=== PATIENT | male | born 1940 | race Caucasian/White ===

== ENCOUNTER 2016-06-29 07:30 | Emergency (ER) | payer MEDICARE ==
[2016-06-29 08:33] LABS: ABSOLUTE NEUTROPHIL COUNT 3.8 K/mm3 (1.8-7.7); BASO % 0.5 % (0.2-1.0); EOS # 0.2 (0.0-0.5); EOS % 3.4 % (0.9-2.9); HEMATOCRIT 44.7 % (32.0-52.0); IMM NEUT% 0.6 % (0-1); LYMPH # 1.6 (1.0-4.8); LYMPH % 24.5 % (15-45); MEAN CELL VOLUME 86.5 fl (80.0-94.0); MEAN CORPUSCULAR HGB CONC 33.6 g/dl (33.0-37.0); MEAN PLATELET VOLUME 10.7 fl (7.4-10.4); MONO # 0.7 (0.0-0.8); MONO % 11.3 % (4-12); NEUT % 59.7 % (43-75); PLATELET COUNT 206 K/mm3 (130-400)
[2016-06-29 08:44] LABS: ALB/GLOB RATIO 1.3 (>1.0); ALBUMIN 3.9 gm/dL (3.5-5.7); CALCIUM 9.3 mg/dL (8.6-10.3); MAGNESIUM 2.1 mg/dL (1.9-2.7)
--- NOTE | 2016-06-29 09:02 | CT ---
HEAD W/O CON History: Near syncopal episode. Comparison: None. Procedure: 1 mm axial images were obtained through the head from the vertex to the base of the skull without intravenous contrast. Stacked reconstructed 5 mm images were then obtained in the axial, coronal and sagittal planes. Findings: The lateral ventricles appear to be of normal size and configuration. No evidence of midline shift is seen. No mass or mass effect is identified. No evidence of intra or extra-axial fluid collections or hemorrhage is seen. There are mild periventricular deep white matter low-attenuation changes suggested. The basilar cisterns are uneffaced. The posterior fossa structures are unremarkable. Bone windows demonstrate mild ethmoid sinus disease. The osseous structures are grossly intact. Impression: 1. No findings of acute intracranial hemorrhage. 2. Mild periventricular deep white matter low-attenuation changes most consistent with small vessel ischemia considering patient age. 3. Mild ethmoid sinus disease.
[2016-06-29 10:21] LABS: URINE BILIRUBIN NEGATIVE (NEGATIVE); URINE BLOOD NEGATIVE (NEGATIVE); URINE GLUCOSE (UA) NEGATIVE (NEGATIVE); URINE LEUKOCYTE ESTERASE NEGATIVE (NEGATIVE); URINE NITRITE NEGATIVE (NEGATIVE); URINE PROTEIN NEGATIVE (NEGATIVE); URINE UROBILINOGEN NORMAL (0-1 mg/dl)
[2016-06-29 10:22] LABS: URINE APPEARANCE CLEAR; URINE COLOR YELLOW
== END 2016-06-29 11:09 | disposition home or self-care (01) ==
LOC: SUPCPDRO 07:30 → ED 07:30
DX: R55 Syncope and collapse (principal); R00.1 Bradycardia, unspecified; E03.9 Hypothyroidism, unspecified